=== PATIENT | female | born 1935 | race Two or more races ===

== ENCOUNTER 2020-04-16 21:17 | Emergency (ER) | payer OTHER ==
[~2020-04-16] VITALS: Ht 160 cm; Wt 35.8 kg
--- NOTE | 2020-04-16 21:20 | NUR ---
PT BIBRA FROM HOME C/O R HIP PAIN S/P FALL. PT AWAKE BUT UNABLE TO ANSWER QUESTIONS, RESPIRATIONS EVEN AND UNLABORED ON RA W/ NAD NOTED. PT CONNECTED TO THE [employer] AND PX
[2020-04-16] MEDS ORDERED: ONDANSETRON HCL/PF 4 MG/2 ML VIAL ONE (21:28)
[2020-04-16] MEDS ORDERED: MORPHINE SULFATE INJ 4 MG/ML DISP.SYRIN ONE (21:28)
[2020-04-16] MEDS ORDERED: MORPHINE SULFATE INJ 2 MG/ML DISP.SYRIN IV ONE (21:30)
[2020-04-16] MEDS ORDERED: ONDANSETRON HCL/PF 4 MG/2 ML VIAL IV ONE (21:30)
--- NOTE | 2020-04-16 21:40 | NUR ---
BLOOD COLLECTED AND SENT TO LAB
--- NOTE | 2020-04-16 21:44 | NUR ---
XRAY AT BEDSIDE
[2020-04-16 21:59] LABS: BASOPHILS # (AUTO) 0.1 /CMM (0.0-0.2); BASOPHILS % (AUTO) 0.7 % (0.0-2.0); EOSINOPHILS % (AUTO) 0.4 % (0.0-6.0); HEMATOCRIT 39 % (33-45); LYMPHOCYTES # (AUTO) 1.4 /CMM (0.8-4.8); LYMPHOCYTES % (AUTO) 17.4 % (20.0-44.0); MEAN CORPUSCULAR HGB CONC 31 g/dl (31.0-36.0); MEAN CORPUSCULAR VOLUME 89 fL (82-100); MONOCYTES # (AUTO) 0.7 /CMM (0.1-1.30); MONOCYTES % (AUTO) 9.2 % (2.0-12.0); NEUTROPHILS # (AUTO) 5.8 /CMM (1.8-8.9); NEUTROPHILS % (AUTO) 72.3 % (43.0-81.0); PLATELET COUNT (AUTO) 242 /CMM (150-450); RED BLOOD CELL COUNT(AUTO) 4.33 MIL/uL (4.0-5.2)
[2020-04-16 22:10] LABS: CALCIUM, SERUM 9.2 mg/dL (8.5-10.1); CREATININE 0.7 mg/dL (0.6-1.3); POTASSIUM 3.9 mmol/L (3.5-5.1)
--- NOTE | 2020-04-16 22:25 | NUR ---
DR CORRAL AT BEDSIDE
--- NOTE | 2020-04-16 22:26 | NUR ---
CALLED [facility], AWAITING MD CALL BACK
--- NOTE | 2020-04-16 22:30 | NUR ---
DR CORRAL ON THE PHONE WITH DR JURAEZ FROM [place]
--- NOTE | 2020-04-16 23:47 | NUR ---
SPOKE TO [facility]ENT[facility] OVER THE PHONE. STILL WAITING FOR PLACEMENT
[2020-04-17 00:17] VITALS: BP 186/89
--- NOTE | 2020-04-17 00:34 | NUR ---
REC'D A CALL FROM [facility] WITH TRANSFER INFO: PT GOT ACCEPTED AT [facility], ER ACCEPTING MD: DR. CROSS PHONE NUMBER FOR REPORT: [phone] ALS TRANSPORTATION BY [facility], ETA: [id number]
--- NOTE | 2020-04-17 00:45 | NUR ---
REPORT GIVEN TO STANISLAW VILLAR FOR [facility]
--- NOTE | 2020-04-17 00:50 | NUR ---
REPORT GIVEN TO EMS. PT STABLE FOR TRANSFER
--- NOTE | 2020-04-17 01:03 | NUR ---
SPOKE W/ PATIENT'S FRIEND,RAFI, REGARDING PT'S TRANSFER
== END 2020-04-17 01:46 | disposition short-term general hospital (02) ==
LOC: ER 21:27
DX: S72.141A Displaced intertrochanteric fracture of right femur, initial encounter for closed fracture (principal); W19.XXXA Unspecified fall, initial encounter; Y92.019 Unspecified place in single-family (private) house as the place of occurrence of the external cause; I44.7 Left bundle-branch block, unspecified; Z20.828 Contact with and (suspected) exposure to other viral communicable diseases; F03.90 Unspecified dementia, unspecified severity, without behavioral disturbance, psychotic disturbance, mood disturbance, and anxiety; I10 Essential (primary) hypertension
CPT/HCPCS: 36415; 70450; 73502; 80048; 85025; 85610; 85730; 87426; 93005; 96374; 96375; 99285; C9803; J2270; J2405